=== PATIENT | male | born 1960 | race Caucasian/White ===

== ENCOUNTER 2017-11-15 15:10 | Emergency (ER) | payer MEDICAID, OTHER ==
[~2017-11-15] VITALS: Ht 182.9 cm; Wt 99.8 kg
--- NOTE | 2017-11-15 15:10 | NUR ---
Patient is here in our ER, brought in by his private caregiver 2/2 generalized weakness and tremors. Occasional tremors of hands noted, anxious but directable by his caregiver, respiration:easy, SYED, developmentally delayed with psychiatric disorder (schizophrenia), skin is warm & dry.
[2017-11-15] MEDS ORDERED: IV NORMAL SALINE 1000 ML BAG IV ONE (15:30)
[2017-11-15] MEDS ORDERED: VANCOMYCIN IV 1,000 MG in IV DEXTROSE 5% 250 ML IV ONE (15:30)
[2017-11-15] MEDS ORDERED: PIPERACILLIN SODIUM/TAZOBACTAM 3.375 G in IV DEXTROSE 5% 50 ML IV ONE (15:30)
[2017-11-15] MEDS ORDERED: LEVOFLOXACIN 750MG/D5W 150 ML IV ONE ×2 (15:30→15:41)
[2017-11-15] MEDS ORDERED: ACETAMINOPHEN 325 MG TABLET PO ONE (15:30)
[2017-11-15] MEDS ORDERED: ACETAMINOPHEN ES 500 MG TABLET ONE (15:32)
[2017-11-15] MEDS ORDERED: LOSA100T3 PO (15:39)
[2017-11-15] MEDS ORDERED: ALLO100T PO (15:39)
[2017-11-15] MEDS ORDERED: FURO-152 PO (15:39)
[2017-11-15] MEDS ORDERED: LATA2.5D7 OP (15:39)
[2017-11-15] MEDS ORDERED: OMEP20TA5 PO (15:39)
[2017-11-15] MEDS ORDERED: DIVA500T7 PO (15:39)
[2017-11-15] MEDS ORDERED: TERB250T52 PO (15:39)
[2017-11-15] MEDS ORDERED: QUET400T PO (15:39)
[2017-11-15] MEDS ORDERED: QUET300T2 PO (15:39)
[2017-11-15] MEDS ORDERED: LEVO50TA8 PO (15:39)
[2017-11-15] MEDS ORDERED: CARV6.252 PO (15:39)
[2017-11-15] MEDS ORDERED: TRAZ-144 PO (15:39)
[2017-11-15] MEDS ORDERED: PROP20TA7 PO (15:39)
[2017-11-15] MEDS ORDERED: PIPERACILLIN/TAZOBACTAM/D5W 50 ML IV ONE (15:42)
[2017-11-15] MEDS ORDERED: VANCOMYCIN IV 200 ML ONE (15:42)
[2017-11-15 15:59] LABS: BASOPHILS % (AUTO) 0.6 % (0.0-2.0); EOSINOPHILS % (AUTO) 0.5 % (0.0-7.0); HEMATOCRIT 42.8 % (36.7-47.1); HEMOGLOBIN 14.6 g/dL (12.5-16.3); LYMPHOCYTES # (AUTO) 1.6 K/uL (20.0-40.0); LYMPHOCYTES % (AUTO) 25.3 % (20.5-51.5); MEAN CORPUSCULAR HEMOGLOBIN 33.3 uug (23.8-33.4); MEAN CORPUSCULAR HGB CONC 34 g/dL (32.5-36.3); MEAN CORPUSCULAR VOLUME 97.7 fL (73.0-96.2); MONOCYTES # (AUTO) 0.9 K/uL (2.0-10.0); MONOCYTES % (AUTO) 14.7 % (0.0-11.0); NEUTROPHILS # (AUTO) 3.7 K/uL (1.8-8.9); NEUTROPHILS % (AUTO) 58.9 % (38.5-71.5); PLATELET COUNT (AUTO) 114 K/uL (152-348); RED BLOOD CELL COUNT(AUTO) 4.38 MIL/uL (4.06-5.63); WHITE BLOOD COUNT (AUTO) 6.4 K/uL (3.6-10.2)
--- NOTE | 2017-11-15 16:06 | NUR ---
Patient voided by urinal & refused to changed to hospital [facility]. Private caregiver is at bedside. Addendum: 11/15/17 at 1607 by DANN Patient refused to change to hospital [facility].
[2017-11-15 16:08] LABS: CREATININE 1.1 mg/dL (0.6-1.3)
[2017-11-15 16:13] LABS: *BILIRUBIN,URIN NEGATIVE (NEGATIVE); *BLOOD, URINE 2+ (NEGATIVE); *COLOR,URINE DARK YELLOW (YELLOW); *KETONES,URINE TRACE (NEGATIVE); *PROTEIN,URINE TRACE (NEGATIVE); LEUKOCYTE ESTERASE ,URINE 1+ (NEGATIVE); NITRITE, URINE NEGATIVE (NEGATIVE); UGLUCOSE NEGATIVE (NEGATIVE)
[2017-11-15 16:14] LABS: BILIRUBIN,DIRECT 0.2 mg/dL (0.0-0.2); BILIRUBIN,TOTAL 0.5 mg/dL (0.2-1.0); TOTAL PROTEIN, SERUM 7.4 g/dL (6.4-8.2)
[2017-11-15 16:19] LABS: *CLARITY,URINE SLIGHTLY HAZY (CLEAR)
[2017-11-15 16:20] LABS: RBC,URINE 20-50 /HPF (0-3)
[2017-11-15 16:21] LABS: WBC,URINE 20-50 /HPF (0-3)
--- NOTE | 2017-11-15 17:43 | NUR ---
Patient is eating dinner tray with good appetite.
--- NOTE | 2017-11-15 18:08 | NUR ---
Patient ate 100% of the dinner tray, pendingaccepting hospital & nurse at this time, no acute change in condition seen
--- NOTE | 2017-11-15 18:37 | NUR ---
Patient pulled the IV line. Catheter intact and site benign. Pressure and 4x4 gauze applied to site. No bleeding noted. We will restart peripheral IV line before transfer to another hospital.
--- NOTE | 2017-11-15 18:55 | NUR ---
Patient will go to outside Facility: [facility] Physician: Lobel Location:[facility] room 311A RN : Willa accepted hands off report
[2017-11-15] MEDS ORDERED: LORAZEPAM 0.5 MG TABLET PO ONE (19:15)
[2017-11-15] MEDS ORDERED: LORAZEPAM 1 MG TABLET ONE (19:16)
--- NOTE | 2017-11-15 19:46 | NUR ---
Pt left ER in stable condition. Pt will be transferred to [facility] via transport 330. All belongings with pt.
== END 2017-11-15 19:48 | disposition short-term general hospital (02) ==
LOC: ER 15:14
DX: N39.0 Urinary tract infection, site not specified (principal); Q60.0 Renal agenesis, unilateral; I10 Essential (primary) hypertension; Z79.899 Other long term (current) drug therapy; Z79.891 Long term (current) use of opiate analgesic
CPT/HCPCS: 36415; 71045; 71250; 74176; 80048; 80076; 81001; 83605; 84484; 85025; 85730; 87040 ×2; 87086; 93005; 96365; 96367; 96368; 99285; A4663; A9150; J1956; J2543; J3370; J7030 ×2; J7040 ×2; 70030-TC